=== PATIENT | female | born 1995 | race Caucasian/White ===

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

== ENCOUNTER 2017-01-15 18:38 | Emergency (ER) | payer OTHER ==
[~2017-01-15] VITALS: Ht 162.6 cm; Wt 60.5 kg
[2017-01-15 18:40] VITALS: BP 118/75; PULSE 86; RESP 18; O2SAT 100
[2017-01-15 21:04] LABS: BASOPHILS % (AUTO) 0.2 % (0-3); EOSINOPHILS % (AUTO) 1.4 % (0-5); MONOCYTES % (AUTO) 9.3 % (4-12); Mean Corpuscular Hemoglobin 31.1 pg (27.0-35.0); Mean Corpuscular Volume 95.6 fL (81-100); NEUTROPHILS % (AUTO) 44.9 % (40-74); Platelet Count 214 bil/L (150-400)
[2017-01-15 21:24] LABS: Magnesium 1.9 mg/dL (1.6-2.6)
--- NOTE | 2017-01-15 21:25 | ED.REPORT ---
HPI-Back Pain Under 40 Date of Service Jan 15, 2017 ED Provider: Sascha Luque MD This is a 21-year-old female with history of anxiety, depression, asthma presents to the ED for back pain. Mentioned she has been having back pain on the left since about the end of October and it has recently now gone to the right side. She describes it as a stabbing pain that does not radiate and nothing seems to help. She has tried Uristat in the past which worked initially and then stop. He does note that she has had kidney infection for the last month and has taken 2 rounds of antibiotics. She is not having any dysuria at this time but is having frequency and urgency. She states that this is increasing her back pain when she has urgency. She notes that she is having fevers and chills, nausea without vomiting, constipation. She does have suprapubic abdominal pain. She mentions of having bright red blood in her stool from time to time. She denies chest pain and shortness of breath. Nursing Notes Stated Complaint: POSS KIDNEY INFECTION Chief Complaint: Female Abdominal Pain Nursing Notes Reviewed: Yes Allergies: Coded Allergies: shellfish derived (Verified Allergy, Severe, Anaphylaxis, 12/26/16) EPIPEN budesonide (Verified Allergy, Intermediate, Kidney problems, 12/26/16) formoterol (Verified Allergy, Intermediate, Kidney problems, 12/26/16) haloperidol (Verified Allergy, Intermediate, [place] muscles, 12/26/16) ibuprofen (Verified Allergy, Mild, Back pain, 12/26/16) Sulfa (Sulfonamide Antibiotics) (Unverified Allergy, Unknown, 12/26/16) UPDATED FROM UNCODED Scheduled Fluoxetine (Prozac) 10 Mg Capsule 10 MG PO DAILY Scheduled PRN Lorazepam (Ativan) 1 Mg Tablet 1 MG PO TID PRN PRN For Anxiety General Time Seen by MD: 21:00 Chief Complaint Back pain Hx Obtained From: Patient, Other family... (Mother) Sudden in Onset?: No Past Medical History Past Medical History Anxiety Panic Disorder Reports: Asthma Reports: Depression Past Surgical History Reports: Appendectomy Smoking History Never Smoker Social History Alcohol Use: Denies alcohol use Drug Use: Denies drug use Other Social History: Good social support, Lives with parents, Local resident Ambulatory Status Independent Review of Systems Constitutional: Reports: Chills, Fever Respiratory: Denies: Shortness of breath Cardiovascular: Denies: Chest pain GI: Reports: Abdominal pain, Constipation, Nausea, Denies: Vomiting Female: Denies: Dysuria, Musculoskeletal: Reports: Back pain Complete sys rev & neg: except as marked. Physical Exam Initial Vital Signs Vital Signs (First) Date Time Temp Pulse Resp B/P Pulse Ox O2 Delivery O2 Flow Rate FiO2 01/15/17 18:40 37.1 86 18 118/75 100 Room Air Head / Eyes: Atraumatic, Normocephalic ENT: Conjunctiva normal Respiratory: Breath sounds normal, Clear to auscultation, No respiratory distress Cardiovascular: Regular rate & rhythm, Heart sounds normal Abdomen / GI: Soft, No guarding, No rebound, No distention Extremities: Neuro intact Skin: Warm Psychiatric: Mood/affect normal, Behavior normal, Normal thought content General/Constitutional: Awake, Alert, No acute distress, Well appearing, Not toxic appearing Back: Atraumatic, Inspection NL, No midline vertebral tend, No muscle spasm Flank / Spine / Paraspinal: Positive: Flank tender L Trauma - Back Specific: Positive: Rib tender L nondeformed Interpretation & Diagnostics Lab Results Interpretation Result Diagram: 01/15/17204401/15/172044 Test 01/15/17 20:45 01/15/17 21:17 White Blood Count 5.6th/mm3 (3.8-10.1) Red Blood Count 4.11mil/mm3 (3.90-5.20) Hemoglobin 12.8g/dL (12.0-15.6) Hematocrit 39.3% (35.0-46.0) Mean Corpuscular Volume 95.6fL (81-100) Mean Corpuscular Hemoglobin 31.1pg (27.0-35.0) Mean Corpuscular Hemoglobin Concent 32.6% (32.0-37.0) Red Cell Distribution Width 12.0% (12.3-15.4) Platelet Count 214bil/L (150-400) Neutrophils (%) (Auto) 44.9% (40-74) Lymphocytes (%) (Auto) 44.2% (14-46) Monocytes (%) (Auto) 9.3% (4-12) Eosinophils (%) (Auto) 1.4% (0-5) Basophils (%) (Auto) 0.2% (0-3) Sodium Level 137mEq/L (134-144) Potassium Level 4.3mEq/L (3.5-5.2) Chloride Level 101mEq/L (97-108) Carbon Dioxide Level 23mmol/L (18-29) Blood Urea Nitrogen 17mg/dL (6-20) Creatinine 0.76mg/dL (0.57-1.00) Estimat Glomerular Filtration Rate 140mL/min (>59) Glucose Level 95mg/dL (60-99) Calcium Level 10.0mg/dL (8.5-10.1) Magnesium Level 1.9mg/dL (1.6-2.6) Total Bilirubin 0.7mg/dL (0.0-1.2) Aspartate Amino Transf (AST/SGOT) 34U/L (0-50) Alanine Aminotransferase (ALT/SGPT) 46U/L (0-32) Alkaline Phosphatase 61U/L (25-150) Total Protein 7.9g/dL (6.4-8.4) Albumin 4.8g/dL (3.4-5.0) Lipase 43U/L (13-60) Hold [place] Top Tube Received (Received) Urine Color Yellow (YELLOW) Urine Appearance Clear (CLEAR,HAZY) Urine pH 6.0 (5.0-8.0) Urine Specific [place] 1.025 (1.003-1.035) Urine Protein Negativemg/dL (NEG,TRACE) Urine Glucose (UA) Negativemg/dL (NEGATIVE) Urine Ketones Negativemg/dL (NEGATIVE) Urine Occult Blood Negative (NEGATIVE) Urine Nitrite Negative (NEGATIVE) Urine Bilirubin Negative (NEGATIVE) Urine Urobilinogen Normalmg/dL (NORMAL) Urine Leukocyte Esterase Negative (NEGATIVE) Urine RBC 0-2/hpf (0-2) Urine WBC 0-5/hpf (0-5) Urine Epithelial Cells Moderate/hpf (NONE-MOD) Urine Crystals None seen (NONE SEEN) Urine Bacteria Few/hpf (NONE-FEW) Urine Hyaline Casts None/lpf (NONE) Urine Granular Casts None seen (NONE SEEN) Urine Waxy Casts None seen (NONE SEEN) Urine Red Blood Cell Casts None seen (NONE SEEN) Urine White Blood Cell Casts None seen (NONE SEEN) Urine Mucus None seen (None Seen) Urine Trichomonas None seen (NONE SEEN) Urine Yeast None (NONE SEEN) Urinalysis Comment None Urine Culture Reflexed Not indicated Re-Eval/Medical Decision Med Decision/Clinical Course This is a 21-year-old female with history of anxiety and depression who presents to the emergency department for back pain. Her pain has been going on since October and has worsened from going from the left side to the right side. Pain is reproducible when palpating her lower left ribs. Her CBC, CMP, urine analysis were unremarkable. There does not seem to be an active urinary tract infection or kidney stone based on UA. Patient is stable. Plan is for discharge to home and advised her to return to the ED if symptoms worsen. We are giving 1 dose of Flexeril prior to her departure per patient request. Re-Evaluation/Progress : Re-Evaluation/Progress Note: Patient in pain hunched over in bed prior to departure, however unable to elaborate on her pain. Flexeril was given. Discharge & Departure Impression: Primary Impression: Back pain Back pain location: low back pain Chronicity: acute Back pain laterality: bilateral Sciatica presence: without sciatica Qualified Code: M54.5 - Low back pain Disposition: Home All VS Reviewed: Yes Condition: Stable Patient Instructions: Back Pain (ED) Additional Instructions: Follow up with your primary care physician within the next week. Keep trying to use heat packs as this can relax the muscles. We have prescribed Flexeril 10 mg for you. You may take this up to 3 times a day for back pain as needed if you find relief with it. Return to the emergency department if you are having worsening of your symptoms. Referrals: [facility] (PCP) Attending Statement Seen and examined with Dr Rodríguez on 01/15. Pt appears anxious, exam and labs reassuring. Preg neg. Note reported intolerance to ibuprofen and tylenol. Tried flexeril, did not appear effective. Pt advised to follow up with primary care. No UTI or evidence of abd surgical process tonight. copies to: [facility] Sundar Rodríguez DO Jan 15, 2017 21:25 Sascha Luque MD Jan 16, 2017 00:03
[2017-01-15 21:28] LABS: APPEARANCE,URINE CLEAR (CLEAR,HAZY); COLOR,URINE YELLOW (YELLOW); OCCULT BLOOD,URINE NEGATIVE (NEGATIVE); UROBILINOGEN,URINE NORMAL (NORMAL)
[2017-01-15 23:01] VITALS: BP 116/66; PULSE 103; O2SAT 100
[2017-01-16 00:01] VITALS: BP 108/65; PULSE 87; RESP 16; O2SAT 100
== END 2017-01-16 00:03 | disposition home or self-care (01) ==
LOC: SED 18:38
DX: M54.5 Low back pain (principal); Z88.2 Allergy status to sulfonamides; Z88.8 Allergy status to other drugs, medicaments and biological substances; Z91.013 Allergy to seafood

== ENCOUNTER 2017-01-28 20:55 | Emergency (ER) | payer OTHER ==
[2017-01-28 21:00] VITALS: BP 111/74; PULSE 98; RESP 18; O2SAT 97
--- NOTE | 2017-01-28 21:41 | ED.REPORT ---
HPI-General Illness Date of Service Jan 28, 2017 ED Provider: Vincent Linder MD A 21 year old female with a history of anxiety, depression, psychosis and panic disorder presents to the ED complaining of chest pain onset two weeks ago. This pain is substernal radiating to her back, and is accompanied by nausea. It is not pleuritic or positional, and is not worsened by eating or drinking. The pt states that this is different from her asthma pain. The pt admits to flank pain and dry cough, but denies productive cough, constipation or diarrhea. She has been treated for a UTI intermittently for two months and has been prescribed four different antibiotics without her symptoms resolving. Nursing Notes Stated Complaint: CHEST PAIN,DIZZINESS,WEAKNESS Chief Complaint: General Complaint Nursing Notes Reviewed: Yes Allergies: Coded Allergies: shellfish derived (Verified Allergy, Severe, Anaphylaxis, 12/26/16) EPIPEN budesonide (Verified Allergy, Intermediate, Kidney problems, 12/26/16) formoterol (Verified Allergy, Intermediate, Kidney problems, 12/26/16) haloperidol (Verified Allergy, Intermediate, [place] muscles, 12/26/16) ibuprofen (Verified Allergy, Mild, Back pain, 12/26/16) Sulfa (Sulfonamide Antibiotics) (Unverified Allergy, Unknown, 12/26/16) UPDATED FROM UNCODED Scheduled Fluoxetine (Prozac) 10 Mg Capsule 10 MG PO DAILY Scheduled PRN Lorazepam (Ativan) 1 Mg Tablet 1 MG PO TID PRN PRN For Anxiety General Time Seen by MD: 21:41 Chief Complaint Chest pain Hx Obtained From: Patient Arrived By: Walk-in Sudden in Onset?: No Onset Occurred: More than a week ago... Symptom Duration: Since onset Recent Healthcare: Recent doctor visit Similar Sx Previous: No Past Medical History Past Medical History Anxiety Panic Disorder Psychosis Reports: Asthma Reports: Depression Past Surgical History Reports: Appendectomy Smoking History Never Smoker Social History Alcohol Use: Denies alcohol use Drug Use: Denies drug use Other Social History: Good social support, Lives with parents, Local resident Ambulatory Status Independent Review of Systems Full Review of Systems Respiratory: Reports: Non-productive cough, Denies: Prod cough, clear, Shortness of breath Cardiovascular: Reports: Chest pain GI: Reports: Nausea, Denies: Constipation, Diarrhea, Vomiting Female: Reports: Flank pain Musculoskeletal: Reports: Back pain, Denies: Neck pain Skin: Denies Rash Complete sys rev & neg: except as marked. Physical Exam Vital Signs Vital Signs Date Time Temp Pulse Resp B/P Pulse Ox O2 Delivery O2 Flow Rate FiO2 01/29/17 00:41 84 18 108/64 97 01/29/17 00:14 92 19 111/67 99 Room Air 01/28/17 21:58 92 19 111/67 99 Room Air 01/28/17 21:00 37.4 98 18 111/74 97 Room Air Initial VS: Reviewed General/Constitutional: Awake, Alert Head / Eyes: Atraumatic, Normocephalic, PERRL, EOMI ENT: Atraumatic, Airway patent, Mucous membranes moist Neck: Atraumatic, Supple, Full range of motion, No JVD Respiratory / Chest: Breath sounds NL, Breath sounds = bilat, No respiratory distress costochondral tenderness to palpation Cardiovascular: Heart rate NL, Regular rhythm soft 1/6 systolic pulmonic murmur, right sternal border normal valve sounds, normal split Abdomen: Atraumatic, Soft, Non-tender Back: Atraumatic, Full range of motion Upper Extremities Upper Extremity / MS: Atraumatic, Full range of motion Lower Extremity / Pelvis / MS: Atraumatic, Full range of motion Skin: Color NL, No rash, Warm, Dry Neurologic: Oriented X3, Speech NL, No motor deficits, No sensory deficits Psychiatric: Not suicidal Abnormal Mood/Affect: Positive: Depressed, Flat affect Interpretation & Diagnostics Lab Results Interpretation Result Diagram: 01/28/17 2341 01/28/17 2341 Test 01/28/17 22:25 01/28/17 23:41 Urine Color Yellow (YELLOW) Urine Appearance Hazy (CLEAR,HAZY) Urine pH 6.5 (5.0-8.0) Urine Specific [place] 1.020 (1.003-1.035) Urine Protein Negativemg/dL (NEG,TRACE) Urine Glucose (UA) Negativemg/dL (NEGATIVE) Urine Ketones Negativemg/dL (NEGATIVE) Urine Occult Blood Trace (NEGATIVE) Urine Nitrite Negative (NEGATIVE) Urine Bilirubin Negative (NEGATIVE) Urine Urobilinogen Normalmg/dL (NORMAL) Urine Leukocyte Esterase Trace (NEGATIVE) Urine RBC 0-2/hpf (0-2) Urine WBC 0-5/hpf (0-5) Urine Epithelial Cells Many/hpf (NONE-MOD) Urine Crystals None seen (NONE SEEN) Urine Bacteria Few/hpf (NONE-FEW) Urine Hyaline Casts None/lpf (NONE) Urine Granular Casts None seen (NONE SEEN) Urine Waxy Casts None seen (NONE SEEN) Urine Red Blood Cell Casts None seen (NONE SEEN) Urine White Blood Cell Casts None seen (NONE SEEN) Urine Mucus None seen (None Seen) Urine Trichomonas None seen (NONE SEEN) Urine Yeast None (NONE SEEN) Urinalysis Comment None Urine Culture Reflexed Indicated White Blood Count 5.7th/mm3 (3.8-10.1) Red Blood Count 3.61mil/mm3 (3.90-5.20) Hemoglobin 11.6g/dL (12.0-15.6) Hematocrit 34.0% (35.0-46.0) Mean Corpuscular Volume 94.2fL (81-100) Mean Corpuscular Hemoglobin 32.1pg (27.0-35.0) Mean Corpuscular Hemoglobin Concent 34.1% (32.0-37.0) Red Cell Distribution Width 11.9% (12.3-15.4) Platelet Count 166bil/L (150-400) Neutrophils (%) (Auto) 43.5% (40-74) Lymphocytes (%) (Auto) 45.5% (14-46) Monocytes (%) (Auto) 8.8% (4-12) Eosinophils (%) (Auto) 1.6% (0-5) Basophils (%) (Auto) 0.4% (0-3) Erythrocyte Sedimentation Rate 8mm/hr (0-32) Prothrombin Time 11.0sec (8.1-12.5) Prothromb Time International Ratio 1.03ratio Sodium Level 139mEq/L (134-144) Potassium Level 4.3mEq/L (3.5-5.2) Chloride Level 105mEq/L (97-108) Carbon Dioxide Level 21mmol/L (18-29) Blood Urea Nitrogen 12mg/dL (6-20) Creatinine 0.63mg/dL (0.57-1.00) Estimat Glomerular Filtration Rate 174mL/min (>59) Glucose Level 83mg/dL (60-99) Calcium Level 8.2mg/dL (8.5-10.1) Magnesium Level 1.8mg/dL (1.6-2.6) Total Bilirubin 0.5mg/dL (0.0-1.2) Aspartate Amino Transf (AST/SGOT) 25U/L (0-50) Alanine Aminotransferase (ALT/SGPT) 16U/L (0-32) Alkaline Phosphatase 50U/L (25-150) Total Protein 6.4g/dL (6.4-8.4) Albumin 3.9g/dL (3.4-5.0) Lipase 24U/L (13-60) ECG Interpretation ECG Interpretation: normal sinus rhythm with a rate of 87 Time: 21:19 Interpreted by: ED physician Re-Eval/Medical Decision Med Decision/Clinical Course 21-year-old presents with elicitable chest pain or anterior chest wall and continued right flank pain. Chest wall pain is fairly clearly musculoskeletal in origin. Flank pain had previously been treated as UTI, but her urine is negative tonight. No other findings of concern and blood work or exam. Home with Aleve (ibuprofen allergy is in fact back pain after taking ibuprofen) discharge stable condition. Source of Hx: Old records Time of Eval: 00:37 Patient Status: Condition improved Re-Evaluation/Progress Note: Pt rechecked, whose condition has improved. The diagnosis and plan for discharge are discussed. The pt understands and agrees with the plan. All questions are addressed at this time. Counseled Regarding: Diagnosis, Lab results, Need for follow-up, When/why to return to ED Discharge & Departure Primary Impression: Chest wall pain Additional Impression: Right flank pain Disposition: Home Discharge Condition All VS Reviewed: Yes Condition: Stable Patient Instructions: Costochondritis (ED) Additional Instructions: We find no evidence of serious problem causing her pain. The chest pain is elicitable by palpation, and appears to be localized in the ribs and cartilages. Aleve may be tried for for the pain. The flank pain may be more of the same, but at this point there is no evidence of active urinary tract infection. There is no indication for a repeat course of antibiotics at this point. Call your doctor in the office this morning for follow-up. Return for any new or concerning symptoms. Referrals: OTHER,PHYSICIAN (PCP) Scribe Attestation Portions of this note were transcribed by Tree Kauffman. I, Dr. Linder personally performed the history, physical exam and medical decision-making; I reviewed and confirmed the accuracy of the information in the transcribed note. Vincent Linder MD Jan 28, 2017 21:41 TREE KAUFFMAN Jan 28, 2017 22:01
[2017-01-28 21:58] VITALS: BP 111/67; PULSE 92; RESP 19; O2SAT 99
[2017-01-28] MEDS ORDERED: 0.9% Sodium Chloride 1,000 ML IV ONE (21:59)
[2017-01-28] MEDS ORDERED: Acetaminophen IV 1,000 MG in IV Premix 1 EACH IV ONE (22:00)
[2017-01-28] MEDS ORDERED: Ondansetron 2 mg/mL 2 mL Inj IVPUSH ONE (22:00)
[2017-01-28] MEDS ORDERED: Famotidine Inj 20 MG in IV Premix 1 EACH IV ONE (22:20)
[2017-01-28] MEDS ORDERED: Ketorolac 15 mg/mL Inj IVPUSH ONE (22:20)
[2017-01-28 22:32] LABS: APPEARANCE,URINE HAZY (CLEAR,HAZY); COLOR,URINE YELLOW (YELLOW); OCCULT BLOOD,URINE TRACE (NEGATIVE); PH,URINE 6.5 (5.0-8.0); UROBILINOGEN,URINE NORMAL (NORMAL)
[2017-01-28 23:45] LABS: BASOPHILS % (AUTO) 0.4 % (0-3); EOSINOPHILS % (AUTO) 1.6 % (0-5); MONOCYTES % (AUTO) 8.8 % (4-12); Mean Corpuscular Hemoglobin 32.1 pg (27.0-35.0); Mean Corpuscular Volume 94.2 fL (81-100); NEUTROPHILS % (AUTO) 43.5 % (40-74); Platelet Count 166 bil/L (150-400)
[2017-01-29 00:02] LABS: INR 1.03 ratio
[2017-01-29 00:10] LABS: ERYTHROCYTE SEDIMENTATION RATE 8 mm/hr (0-32)
[2017-01-29 00:12] LABS: Magnesium 1.8 mg/dL (1.6-2.6)
[2017-01-29 00:14] VITALS: BP 111/67; PULSE 92; RESP 19; O2SAT 99
[2017-01-29 00:41] VITALS: BP 108/64; PULSE 84; RESP 18; O2SAT 97
== END 2017-01-29 00:42 | disposition home or self-care (01) ==
LOC: SED 20:55
DX: R07.89 Other chest pain (principal); J45.909 Unspecified asthma, uncomplicated; F41.8 Other specified anxiety disorders; Z88.2 Allergy status to sulfonamides; Z88.6 Allergy status to analgesic agent; Z88.8 Allergy status to other drugs, medicaments and biological substances; Z91.018 Allergy to other foods
CPT/HCPCS: 36415; 80053; 81000; 81025; 83690; 83735; 85025; 85610; 85651; 87086; 87088; 93005; 96361; 96374; 96375; 99285; J0131; J1885; J2405; J3490; J7030